=== PATIENT | female | born 1975 | race Caucasian/White ===

== ENCOUNTER 2024-04-13 15:49 | Emergency (ER) | payer MEDICAID, OTHER ==
[~2024-04-13] VITALS: Ht 149.9 cm; Wt 53.5 kg
[2024-04-13 15:50] VITALS: BP 125/78; TEMP 98.3; O2SAT 99
[2024-04-13] MEDS ORDERED: FLUORESCEIN SODIUM OPHTH 1 EA STRIP ONE (16:39)
[2024-04-13] MEDS ORDERED: TETRAcaine 5 ML BOTTLE ONE (16:41)
[2024-04-13] MEDS: FLUORESCEIN SODIUM OPHTH 1 EA STRIP RIGHTEYE ONE (16:55)
[2024-04-13] MEDS: TETRACAINE HCL 0.5% OPHTALMIC 15 ML BOTTLE OP ONE (16:55)
[2024-04-13] MEDS ORDERED: PRED20TA PO (17:02)
[2024-04-13] MEDS ORDERED: DIPH25CA83 PO (17:02)
== END 2024-04-13 17:18 | disposition home or self-care (01) ==
LOC: ER 15:52
DX: J06.9 Acute upper respiratory infection, unspecified (principal); L23.9 Allergic contact dermatitis, unspecified cause; Z79.52 Long term (current) use of systemic steroids; Z60.2 Problems related to living alone